=== PATIENT | female | born 1990 | race Caucasian/White ===

== ENCOUNTER 2019-08-27 09:00 | Outpatient (CLI) | payer OTHER | END 2019-08-27 23:59 | disposition home or self-care (01) | LOC: WOU 09:00 | PROVIDERS: ATTEND Podiatrist Foot & Ankle Surgery | DX: M20.11 Hallux valgus (acquired), right foot (principal); M20.12 Hallux valgus (acquired), left foot; L84 Corns and callosities; M79.671 Pain in right foot; M79.672 Pain in left foot; R60.0 Localized edema; S91.301A Unspecified open wound, right foot, initial encounter; X58.XXXA Exposure to other specified factors, initial encounter; Y92.89 Other specified places as the place of occurrence of the external cause | CPT/HCPCS: 73630-TC; G0463 ==

== ENCOUNTER 2019-09-04 14:30 | Outpatient (CLI) | payer OTHER | END 2019-09-04 23:59 | disposition home or self-care (01) | LOC: WOU 14:30 | PROVIDERS: ATTEND Podiatrist Foot & Ankle Surgery | DX: L84 Corns and callosities (principal); M20.11 Hallux valgus (acquired), right foot; M20.12 Hallux valgus (acquired), left foot; R60.0 Localized edema | CPT/HCPCS: G0463 ==